=== PATIENT | female | born 1950 | race Caucasian/White ===

== ENCOUNTER 2018-06-25 10:03 | Emergency (ER) | payer MEDICAID, OTHER ==
[2018-06-25 12:27] LABS: ADD MAN DIFF? NO
[2018-06-25 12:28] LABS: WHITE BLOOD COUNT 7.3 10^3/ul (4.8-10.8)
[2018-06-25 12:28] LABS: BASOPHILS % 0.4 % (0.0-2.0); EOSINOPHILS # 0.1 10^3/ul (0.0-0.5); EOSINOPHILS % 1.2 % (0.0-7.0); HEMATOCRIT 37.3 % (37.0-47.0); HEMOGLOBIN 12.1 g/dl (12.0-16.0); LYMPHOCYTES # 1.5 10^3/ul (0.8-2.9); LYMPHOCYTES % 20.3 % (15.0-51.0); MEAN CORPUSCULAR HGB CONC 32.4 g/dl (32.0-37.0); MEAN CORPUSCULAR VOLUME 89.4 fl (82.0-101.0); MEAN PLATELET VOLUME 9.9 fl (7.4-10.4); MONOCYTE # 0.4 10^3/ul (0.3-0.9); MONOCYTES % 5.6 % (0.0-11.0); NEUTROPHIL # 5.3 10^3/ul (1.6-7.5); NEUTROPHILS % 72.2 % (39.0-77.0); PLATELET COUNT 148 10^3/UL (140-415); RED BLOOD COUNT 4.17 10^6/ul (4.20-5.40); RED CELL DISTRIBUTION WIDTH 13.3 % (11.5-14.5)
[2018-06-25 12:46] LABS: ALANINE AMINOTRANSFERASE 33 IU/L (13-69); ALBUMIN 3.5 g/dl (3.3-4.9); ALBUMIN/GLOBULIN RATIO 1.09; ALKALINE PHOSPHATASE 100 IU/L (42-121); AMYLASE 59 U/L (11-123); ANION GAP 11 (8-16); ASPARTATE AMINO TRANSFERASE 23 IU/L (15-46); BILIRUBIN,INDIRECT 0.6 mg/dl (0-1.1); BILIRUBIN,TOTAL 0.6 mg/dl (0.2-1.3); BLOOD UREA NITROGEN 18 mg/dl (7-20); CALCIUM 9.5 mg/dl (8.4-10.2); CARBON DIOXIDE 28 mmol/L (21-31); CHLORIDE 106 mmol/L (97-110); CREATININE 1.11 mg/dl (0.44-1.00); GLUCOSE 101 mg/dl (70-220); LIPASE 91 U/L (23-300); POTASSIUM 3.8 mmol/L (3.5-5.1); SODIUM 141 mmol/L (135-144); TOTAL PROTEIN 6.7 g/dl (6.1-8.1)
[2018-06-25 12:49] LABS: PT RATIO 0.9
[2018-06-25 12:58] LABS: TROPONIN-I < 0.012 ng/ml (0.000-0.120)
[2018-06-25 13:12] LABS: INR 0.88; PARTIAL THROMBOPLASTIN TIME 26.6 Sec (25.0-35.0)
[2018-06-25 15:33] LABS: ADD UMIC YES; UR ASCORBIC ACID NEGATIVE (NEGATIVE); UR BACTERIA FEW /HPF (NONE SEEN); UR BILIRUBIN (Dip) NEGATIVE (NEGATIVE); UR BLOOD (Dip) 3+ mg/dL (NEGATIVE); UR CLARITY SLIGHTLY CLOUDY (CLEAR); UR COLOR AMBER (YELLOW); UR GLUCOSE (Dip) NEGATIVE (NEGATIVE); UR KETONES (Dip) NEGATIVE (NEGATIVE); UR LEUKOCYTE ESTERASE (Dip) TRACE Leu/ul (NEGATIVE); UR MUCUS MANY /HPF (NONE SEEN); UR NITRITE (Dip) NEGATIVE (NEGATIVE); UR RBC 18 /HPF (0-5); UR SPECIFIC GRAVITY (Dip) 1.026 (1.003-1.030); UR SQUAMOUS EPITHELIAL CELL FEW /HPF (FEW); UR TOTAL PROTEIN (Dip) 2+ mg/dl (NEGATIVE); UR UROBILINOGEN (Dip) NEGATIVE (NEGATIVE); UR WBC 5 /HPF (0-5)
== END 2018-06-25 15:48 | disposition home or self-care (01) ==
LOC: E/R 10:03
DX: N95.0 Postmenopausal bleeding (principal); I10 Essential (primary) hypertension
CPT/HCPCS: 76830; 76856; 80053; 81001; 82150; 83690; 84484; 85025; 85610; 85730; 87086; 93005; 99285-25

== ENCOUNTER 2018-07-01 12:09 | Emergency (ER) | payer MEDICARE, MEDICAID | END 2018-07-01 15:49 | disposition home or self-care (01) | LOC: FTE 12:09 | DX: N30.00 Acute cystitis without hematuria (principal); I10 Essential (primary) hypertension | CPT/HCPCS: 74176; 99284-25 ==